=== PATIENT | female | born 1980 | race Caucasian/White ===

== ENCOUNTER → 2024-01-27 | Emergency (ER) | payer SELFPAY ==
[~2024-01-27] MED LIST: Ibuprofen 200 MG TAB ONE
== END ==
LOC: CSHERS 20:36
DX: S92.512A Displaced fracture of proximal phalanx of left lesser toe(s), initial encounter for closed fracture (principal); M21.622 Bunionette of left foot; W20.8XXA Other cause of strike by thrown, projected or falling object, initial encounter
CPT/HCPCS: 99283